=== PATIENT | male | born 1995 | race Caucasian/White ===

== ENCOUNTER 2018-05-31 06:40 | Day surgery (SDC) | payer OTHER ==
[2018-05-31 06:59] LABS: ADD MAN DIFF? NO
[2018-05-31 07:14] LABS: WHITE BLOOD COUNT 4.4 10^3/ul (4.8-10.8)
[2018-05-31 07:14] LABS: BASOPHILS % 0.5 % (0.0-2.0); EOSINOPHILS # 0.1 10^3/ul (0.0-0.5); EOSINOPHILS % 1.6 % (0.0-7.0); HEMATOCRIT 44.9 % (42.0-52.0); HEMOGLOBIN 14.7 g/dl (14.0-18.0); LYMPHOCYTES # 2.3 10^3/ul (0.8-2.9); LYMPHOCYTES % 51.4 % (15.0-51.0); MEAN CORPUSCULAR HEMOGLOBIN 27.5 pg (29.0-33.0); MEAN CORPUSCULAR HGB CONC 32.7 g/dl (32.0-37.0); MEAN CORPUSCULAR VOLUME 83.9 fl (82.0-101.0); MEAN PLATELET VOLUME 9.6 fl (7.4-10.4); MONOCYTE # 0.4 10^3/ul (0.3-0.9); MONOCYTES % 9.6 % (0.0-11.0); NEUTROPHIL # 1.6 10^3/ul (1.6-7.5); NEUTROPHILS % 36.7 % (39.0-77.0); PLATELET COUNT 214 10^3/UL (140-415); RED BLOOD COUNT 5.35 10^6/ul (4.70-6.10); RED CELL DISTRIBUTION WIDTH 13.1 % (11.5-14.5)
[2018-05-31 07:20] LABS: HOLD TRANSMISSIONS 1; POSITIVE DIFF @See below
[2018-05-31 07:24] LABS: PROTIME 13.3 Sec (11.9-14.9)
[2018-05-31 07:25] LABS: PARTIAL THROMBOPLASTIN TIME 30.7 Sec (23.0-35.0)
[2018-05-31 07:29] LABS: ALANINE AMINOTRANSFERASE 19 IU/L (13-69); ALBUMIN 4.3 g/dl (3.3-4.9); ALBUMIN/GLOBULIN RATIO 1.43; ALKALINE PHOSPHATASE 69 IU/L (42-121); ANION GAP 6 (5-13); ASPARTATE AMINO TRANSFERASE 28 IU/L (15-46); BILIRUBIN,INDIRECT 0.5 mg/dl (0-1.1); BILIRUBIN,TOTAL 0.5 mg/dl (0.2-1.3); BLOOD UREA NITROGEN 15 mg/dl (7-20); CALCIUM 9.7 mg/dl (8.4-10.2); CARBON DIOXIDE 31 mmol/L (21-31); CHLORIDE 106 mmol/L (97-110); CREATININE 1.02 mg/dl (0.61-1.24); Estimated GFR > 60 mL/min (>60); GLUCOSE 102 mg/dl (70-220); POTASSIUM 4.5 mmol/L (3.5-5.1); SODIUM 143 mmol/L (135-144); TOTAL PROTEIN 7.3 g/dl (6.1-8.1)
[2018-05-31] MEDS ORDERED: CEFAZOLIN 1 GM INJ (08:12)
[2018-05-31] MEDS ORDERED: GLYCOPYRROLATE 0.4 MG INJ (08:12)
[2018-05-31] MEDS ORDERED: NEOSTIGMINE 3 MG/3 ML SYRINGE (08:12)
[2018-05-31] MEDS ORDERED: PROPOFOL 20 ML (08:12)
[2018-05-31] MEDS ORDERED: ROCURONIUM 50 MG INJ (08:12)
[2018-05-31] MEDS ORDERED: MIDAZOLAM 1 MG/ML 2 ML INJ (08:13)
[2018-05-31] MEDS ORDERED: FENTAnyl 50 MCG/ML VIAL (08:13)
[2018-05-31] MEDS ORDERED: DEXAMETHASONE 4 MG/ML 5 ML INJ (08:14)
[2018-05-31] MEDS ORDERED: ONDANSETRON 4 MG INJ (08:14)
[2018-05-31] MEDS ORDERED: ROPIVACAINE 0.5 % 30 ML VIAL (08:21)
[2018-05-31] MEDS: LIDOCAINE 1%/EPI (1:100,000) (MDV) 20 ML ×2 (08:45→10:40)
[2018-05-31] MEDS ORDERED: DESFLURANE 15 MIN (08:56)
[2018-05-31] MEDS: POLYMYXIN/BACITRACIN 1L IRRIG (09:05)
[2018-05-31] MEDS ORDERED: LIDOCAINE 1%/EPI (1:100,000) (MDV) 20 ML (10:17)
[2018-05-31] MEDS ORDERED: HYDROmorphONE 1 MG/5 ML IV SYRINGE IV ×3 (11:22→11:30)
[2018-05-31] MEDS: HYDROmorphONE 1 MG/5 ML IV SYRINGE IV (11:25)
[2018-05-31] MEDS: ONDANSETRON 4 MG INJ IV (11:25)
[2018-05-31] MEDS ORDERED: MEPERIDINE 25 MG INJ IV (11:30)
[2018-05-31] MEDS ORDERED: TRIMETHOBENZAMIDE 100 MG/ML VIAL IM (11:30)
[2018-05-31] MEDS ORDERED: DIPHENHYDRAMINE 50 MG INJ IV (11:30)
[2018-05-31] MEDS ORDERED: MIDAZOLAM 1 MG/ML 2 ML INJ IV (11:30)
[2018-05-31] MEDS ORDERED: LABETALOL HCL 20MG INJ IV (11:30)
[2018-05-31] MEDS ORDERED: EPHEDrine SULFATE 50 MG/5 ML SYG IV (11:30)
[2018-05-31] MEDS ORDERED: ALBUTEROL 0.083% (NEB) 2.5 MG/3 ML AMP HHN (11:30)
[2018-05-31] MEDS ORDERED: hydrALAzine 20 MG INJ IV (11:30)
[2018-05-31] MEDS ORDERED: FENTAnyl 50 MCG/ML VIAL IV ×3 (11:30)
[2018-05-31] MEDS ORDERED: IPRATROPIUM (NEB) 0.5 MG/2.5 ML AMP HHN (11:30)
[2018-05-31] MEDS ORDERED: OXYCODONE/ACETAMINOPHEN (5/325) TAB PO (11:30)
[2018-05-31] MEDS: OXYCODONE/ACETAMINOPHEN (5/325) TAB PO (11:48)
== END 2018-05-31 12:56 | disposition home or self-care (01) ==
LOC: SDS 06:40
DX: S83.511D Sprain of anterior cruciate ligament of right knee, subsequent encounter (principal); S83.281D Other tear of lateral meniscus, current injury, right knee, subsequent encounter; X58.XXXD Exposure to other specified factors, subsequent encounter
CPT/HCPCS: 29881; 80053; 85025; 85610; 85730